=== PATIENT | female | born 1945 | race Caucasian/White ===

== ENCOUNTER 2017-05-15 13:44 | Emergency (ER) | payer MEDICARE, BC ==
[2017-05-15] MEDS ORDERED: Meclizine HCl 25 MG TAB ONE (14:14)
[2017-05-15 14:35] LABS: #Basophils 0.1 thou/uL (0.0-0.2); #Eosinphils 0.4 thou/uL (0.0-0.7); #Lymphocytes 1.1 thou/uL (1.20-3.40); #Monocytes 0.4 thou/uL (0.11-0.59); #Neutrophils 3.4 thou/uL (1.40-6.50); %Basophils 1.3 % (0.0-1.0); %Lymphocytes 19.9 % (21.0-51.0); %Monocytes 8.1 % (0.0-10.0); Hematocrit 33.6 % (36.0-47.0); Mean Platelet Volume 7.1 fL (7.4-10.4); Red Blood Cell (RBC) Count 3.68 mill/uL (4.20-5.40); White Blood Cell (WBC) Count 5.4 thou/uL (4.8-10.8)
--- NOTE | 2017-05-15 14:43 | CT ---
CT BRAIN WITHOUT CONTRAST: HISTORY: Dizziness. COMPARISON: CT brain from 2006. FINDINGS: No acute territorial infarct or hemorrhage. No midline shift or mass effect. Ventricular size and extraaxial CSF spaces are normal. Calvarium is intact. Paranasal sinuses and mastoids are clear. IMPRESSION: No acute intracranial abnormality. POS: [facility]
[2017-05-15 14:50] LABS: Anion Gap 13 mmol/L (10-20); BUN (Urea Nitrogen) 13 mg/dL (9.8-20.1); CK (CPK) 43 U/L (29-168); Calc. Creatinine Clearance 0 mL/min (70-130); Carbon Dioxide 26 mmol/L (23-31); Chloride 104 mmol/L (98-107); Estimated GFR-MDRD 75; Magnesium 1.8 mg/dL (1.6-2.6)
[2017-05-15 14:52] LABS: Troponin I Less than 0.010 ng/mL (< 0.028)
== END 2017-05-15 16:45 | disposition home or self-care (01) ==
LOC: SCSER 13:44
DX: H81.11 Benign paroxysmal vertigo, right ear (principal); K21.9 Gastro-esophageal reflux disease without esophagitis; F32.9 Major depressive disorder, single episode, unspecified; F17.210 Nicotine dependence, cigarettes, uncomplicated; Z79.82 Long term (current) use of aspirin; Z85.3 Personal history of malignant neoplasm of breast; Z79.899 Other long term (current) drug therapy
CPT/HCPCS: 36415; 70450; 80048; 82550; 82553; 83735; 84484; 85025; 93005

== ENCOUNTER 2017-07-13 08:00 | Outpatient (CLI) | payer MEDICARE, BC | END 2017-07-13 08:01 | disposition home or self-care (01) | LOC: BICMAMMO 08:00 | PROVIDERS: ATTEND Internal Medicine Hematology & Oncology | DX: Z85.3 Personal history of malignant neoplasm of breast (principal); R92.2 Inconclusive mammogram | CPT/HCPCS: G0204; G0279; 77066 ==

== ENCOUNTER 2018-01-07 08:46 | Outpatient (CLI) | payer MEDICARE, BC ==
--- NOTE | 2018-01-07 09:30 | RAD ---
RIGHT SHOULDER 3 VIEWS: HISTORY: Pain. M25.511. COMPARISON: None. FINDINGS: No acute displaced fracture or malalignment. Mild narrowing of the acromioclavicular joint. Visuali zed ribs are unremarkable. IMPRESSION: No acute abnormality. POS: [facility]
== END 2018-01-07 08:47 | disposition home or self-care (01) ==
LOC: SCSRAD 08:46
PROVIDERS: ATTEND Family Medicine
DX: M25.511 Pain in right shoulder (principal)

== ENCOUNTER 2018-02-17 10:36 | Outpatient (CLI) | payer MEDICARE, BC | END 2018-02-17 10:37 | disposition home or self-care (01) | LOC: BICRAD 10:36 | PROVIDERS: ATTEND Podiatrist | DX: M20.42 Other hammer toe(s) (acquired), left foot (principal); M19.072 Primary osteoarthritis, left ankle and foot; M20.12 Hallux valgus (acquired), left foot; M21.612 Bunion of left foot; Q66.21 Congenital metatarsus primus varus; Z98.890 Other specified postprocedural states; Z87.81 Personal history of (healed) traumatic fracture ==

== ENCOUNTER 2018-04-08 08:20 | Outpatient (CLI) | payer MEDICARE, BC ==
--- NOTE | 2018-04-08 09:54 | CT ---
LOW DOSE SCREENING LUNG CT: HISTORY: Nicotine dependence. One year followup. Previous smoker (quit one week ago, smoked for 50 years, av erage of one-half pack a day). Recurrent cough. COMPARISON: 02/17/2017 TECHNIQUE: Utilizing the institution protocol, a low dose CT is performed in the axial plane. Coronal reformatt ed images are submitted for interpretation. FINDINGS: Lung-RADS category 1: No evidence of a primary lung cancer or suspicious mass. Potentially significant incidentals (lung-RADS category S): None. Pulmonary incidentals: Patchy areas of linear opacity, likely due to scar/atelectasis, noted. Other incidentals: Moderate hiatal hernia is redemonstrated. Atherosclerosis of the aorta is identi fied. IMPRESSION: 1. Lung-RADS category 1-Negative examination. 2. Lung-RADS category S-Negative. No new or unknown potential significant incidentals. 3. Other incidentals as above. POS: [facility]
== END 2018-04-08 08:21 | disposition home or self-care (01) ==
LOC: CT 08:20
PROVIDERS: ATTEND Internal Medicine Hematology & Oncology
DX: Z12.2 Encounter for screening for malignant neoplasm of respiratory organs (principal); R92.1 Mammographic calcification found on diagnostic imaging of breast; R92.2 Inconclusive mammogram; N64.89 Other specified disorders of breast; I70.0 Atherosclerosis of aorta; K44.9 Diaphragmatic hernia without obstruction or gangrene; Z85.3 Personal history of malignant neoplasm of breast; Z80.3 Family history of malignant neoplasm of breast; F17.210 Nicotine dependence, cigarettes, uncomplicated
CPT/HCPCS: 77066; G0279; G0297

== ENCOUNTER 2018-06-20 07:29 | Outpatient (CLI) | payer MEDICARE, BC ==
--- NOTE | 2018-06-20 10:18 | MRI ---
MRI CERVICAL SPINE WITHOUT CONTRAST: Date: 06/20/18 HISTORY: M48.02, spinal stenosis cervical region. COMPARISON: MRI dated 09/17/16. FINDINGS: The cerebellar tonsils terminate at the level of the foramen magnum. There is no marrow infiltrative process. No acute fracture or malalignment. No listhesis. No adenopathy. Levels are as follows: C2-3: Mild disc desiccation. Mild uncinate process hypertrophy. Mild facet arthrosis. No significant neural foraminal narrowing. Spinal canal measures 7.0 mm. C3-4: Moderate disc desiccation. Moderate uncinate process hypertrophy. There is a central posterior disc osteophyte complex. Mild ligamentum flavum hypertrophy. Spinal canal measures 6.0 mm. Moderate facet arthropathy. Moderate to severe left and moderate right-sided neural foraminal narrowing. C4-5: Moderate disc desiccation. Moderate uncinate process hypertrophy. Moderate facet arthropathy. Spinal canal measures 8.0 mm. There is a broad based posterior disc osteophyte complex, small. There is moderate right and mild left-sided neural foraminal narrowing. C5-6: Circumferential disc space height loss. Circumferential disc osteophyte complex. Severe facet arthrosis. Ligamentum flavum hypertrophy. Spinal canal is narrowed to approximately 4.0 mm. There is impingement of the cord with mild increased T2 signal. There is also severe left and moderate to viraj re right-sided neural foraminal narrowing. C6-7: Circumferential disc bulge and posterior disc osteophyte complex. Moderate to severe posterior disc space height loss. Moderate facet arthropathy. Moderate facet arthropathy. There is narrowing o f the spinal canal to approximately 5.0 mm. Moderate to severe left and moderate right-sided neural f oraminal narrowing. C7-T1: There is 1.0 mm anterolisthesis due to severe facet arthropathy. There is ligamentum flavum h ypertrophy. The spinal canal measures 7.0 mm. Moderate left and mild right-sided neural foraminal tamara rowing. IMPRESSION: Multilevel spondylosis as described with multifocal neural foraminal and spinal canal narrowing. Ther e is impingement of the cord with mild increased T2 signal at the C5-6 and C6-7 interspace, slightly progressed from the comparison examination. POS: [facility]
--- NOTE | 2018-06-20 11:16 | RAD ---
CERVICAL SPINE COMPLETE WITH FLEXION AND EXTENSION: Date: 06/20/18 HISTORY: Spinal stenosis. COMPARISON: MRI same date. FINDINGS: Multifocal degenerative disc space height loss. There is anterolisthesis of C4 over C5, approximately 2.0 mm, which increases to 3.0 mm with flexion, and then decreases in extension. Multifocal degenerative disc space height loss, worse at C3-4, C5-6, and C6-7. IMPRESSION: Anterolisthesis with translation with flexion and extension at C4-5. POS: [facility]
== END 2018-06-20 07:30 | disposition home or self-care (01) ==
LOC: BICMRI 07:29
PROVIDERS: ATTEND Anesthesiology Pain Medicine
DX: M48.02 Spinal stenosis, cervical region (principal); M43.12 Spondylolisthesis, cervical region; M47.812 Spondylosis without myelopathy or radiculopathy, cervical region; R93.7 Abnormal findings on diagnostic imaging of other parts of musculoskeletal system; G95.89 Other specified diseases of spinal cord
CPT/HCPCS: 72052; 72141

== ENCOUNTER 2018-10-04 08:59 | Outpatient (CLI) | payer MEDICARE, BC ==
[2018-10-04 10:10] LABS: Hemoglobin 13.2 g/dL (12.0-16.0); Mean Corpuscular HGB CONC 32.4 g/dL (32.0-36.0); Mean Corpuscular Hemoglobin 31.2 pg (27.0-31.0); Mean Corpuscular Volume 96.4 fL (78.0-98.0); Mean Platelet Volume 7.6 fL (7.4-10.4); Platelet Count 261 thou/uL (130-400); RBC Distribution Width 11.5 % (11.5-14.5); Red Blood Cell (RBC) Count 4.24 mill/uL (4.20-5.40)
[2018-10-04 10:23] LABS: INR-International Normal Ratio 0.9; PTT 32.9 SEC (22.9-36.1); Prothrombin Time 12.6 SEC (12.0-14.7)
[2018-10-04 10:33] LABS: Anion Gap 11 mmol/L (10-20); BUN (Urea Nitrogen) 15 mg/dL (9.8-20.1); Calc. Creatinine Clearance 0 mL/min (70-130); Calcium 9.9 mg/dL (7.8-10.44); Carbon Dioxide 29 mmol/L (23-31); Chloride 101 mmol/L (98-107); Estimated GFR-MDRD 63; Glucose 91 mg/dL (83-110); Potassium 4.5 mmol/L (3.5-5.1); Sodium 136 mmol/L (136-145)
--- NOTE | 2018-10-04 18:20 | EKG ---
Test Reason : Blood Pressure : / mmHG Vent. Rate : 078 BPM Atrial Rate : 078 BPM P-R Int : 172 ms QRS Dur : 142 ms QT Int : 400 ms P-R-T Axes : 048 104 037 degrees QTc Int : 456 ms Normal sinus rhythm Right bundle branch block Abnormal ECG When compared with ECG of 15-MAY-2017 13:53, T wave inversion no longer evident in Inferior leads Confirmed by DR. Lila MADSEN ([id number]) on 10/04/2018 6:19:36 PM Referred By: YAKOV Confirmed By:DR. Lila MADSEN
== END 2018-10-04 09:00 | disposition home or self-care (01) ==
LOC: LABBT 08:59
PROVIDERS: ATTEND Surgery
DX: Z01.818 Encounter for other preprocedural examination (principal); M48.02 Spinal stenosis, cervical region; M54.12 Radiculopathy, cervical region
CPT/HCPCS: 80048; 85027; 85610; 85730; 93005; 93010

== ENCOUNTER 2018-10-11 10:00 | Inpatient (IN) | payer MEDICARE, BC ==
[2018-10-04 09:36] VITALS: BMI 28.1
[~2018-10-11 10:00] MED LIST: Glycopyrrolate 0.2 MG/ML 5 ML SYRINGE ONE; Ketorolac Tromethamine 30 MG/ML VIAL ONE; Lidocaine 1% PF 5 ML VIAL ONE; Ondansetron PF 4 MG/2 ML Vial ONE; PHENYLEPHRINE-NS 100 MCG/ML 10 ML SYRINGE ONE; PROPOFOL 200 MG/20 ML VIAL ONE; Rocuronium Bromide 10 MG/ML (10ML VIAL) ONE; ePHEDrine 50 MG/ML VIAL ONE
[2018-10-11] MEDS ORDERED: Sodium Chloride 0.9% 10 ML ONE (10:44)
[2018-10-11] MEDS ORDERED: Thrombin 5000 UNITS/5 ML VIAL ONE (10:44)
[2018-10-11] MEDS ORDERED: Fentanyl 100 MCG/2 ML VIAL ONE ×4 (11:30→19:00)
[2018-10-11] MEDS ORDERED: Morphine 2 MG/ML SYRINGE SLOW IVP PRN (14:32)
[2018-10-11] MEDS ORDERED: Mag-Al 1200 mg/1200 mg/30 ML UDCUP PO PRN (14:32)
[2018-10-11] MEDS ORDERED: Acetaminophen/Codeine 30-300mg Tablet PO PRN (14:32)
[2018-10-11] MEDS ORDERED: Milk Of Magnesia 30 ML UDCUP PO PRN (14:32)
[2018-10-11] MEDS ORDERED: tiZANidine HCl 4 MG TAB PO PRN (14:32)
[2018-10-11] MEDS ORDERED: Acetaminophen 325 MG TAB PO PRN (14:32)
[2018-10-11] MEDS ORDERED: Bisacodyl 10 MG SUPP PR PRN (14:32)
[2018-10-11] MEDS ORDERED: Fleet Enema 133 ML BOT PR PRN (14:32)
[2018-10-11] MEDS ORDERED: traMADol HCl 50 MG TAB PO PRN (14:32)
[2018-10-11] MEDS ORDERED: Promethazine HCl 25 MG/ML VIAL IM PRN ×2 (14:32→14:43)
[2018-10-11] MEDS ORDERED: Ondansetron HCl/PF 4 MG/2 ML Vial IVP PRN (14:43)
[2018-10-11] MEDS ORDERED: Promethazine HCl 25 MG/ML VIAL SLOW IVP PRN (14:43)
[2018-10-11] MEDS ORDERED: tiZANidine HCl 4 MG TAB ONE (15:14)
[2018-10-11] MEDS: HYDROcodone/Acetaminophen 7.5/325 mg Tablet PO PRN (21:31)
[2018-10-11] MEDS: Gabapentin 300 MG CAP PO SCH (21:31)
[2018-10-11] MEDS: Sodium Chloride 0.9% 1,000 ML IV SCH (21:32)
[2018-10-11] MEDS ORDERED: CEFAZOLIN 2 GM in Premix Bag 1 BAG IVPB SCH (22:00)
[2018-10-12] MEDS: HYDROcodone/Acetaminophen 7.5/325 mg Tablet PO PRN ×2 (02:25→07:32)
[2018-10-12] MEDS: CEFAZOLIN 2 GM in Premix Bag 1 BAG IVPB SCH ×2 (03:01→13:34)
[2018-10-12] MEDS: Sodium Chloride 0.9% 1,000 ML IV SCH (03:05)
--- NOTE | 2018-10-12 07:32 | OP ---
DATE OF PROCEDURE: 10/11/2018 OPERATING ROOM: OR 11. WOUND CLASSIFICATION: Type 1 wound. MACHINE OVERHAULER: Trace Vila PA-C. PREPROCEDURE DIAGNOSIS: Cervical myelopathy with neck and arm pain with cervical radiculopathy and cervical stenosis. POSTPROCEDURE DIAGNOSIS: Cervical myelopathy with neck and arm pain with cervical radiculopathy and cervical stenosis. PROCEDURES PERFORMED: 1. Anterior C5-C6 and C6-C7 diskectomies for decompression of spinal cord nerve root. 2. Interbody spacer placement for arthrodesis, packed with local bone autograft obtained from same incision, allograft C5-C6 and C6-C7. 3. Anterior cervical plate and screw fixation, C5, C6, and C7. 4. Use of operative microscope for microdissection. DESCRIPTION OF PROCEDURE: After informed consent was obtained from the patient, the patient was brought to the OR. Proper patient, pause, and identification were carried out. She was then placed under excellent general endotracheal anesthesia and positioned supine on the OR table. All appropriate points were padded. We identified the anterior C5-C6 and C6-C7 segments and a right anterior oblique leigh was made in the anterior neck. This region was sterilely cleansed, prepared, and draped. Proper patient, pause, and identification were carried out. The wound was then opened with a combination of sharp, monopolar, and blunt dissection, and we proceeded lateral to the tracheoesophageal bundle medial to the right carotid sheath. We identified the prevertebral layer of deep cervical fascia and the longus colli muscles. These were swept laterally, retraction placed. Localization film confirmed area of interest. We then performed distraction at C5-C6. The microscope was brought in for microdissection. Diskectomy at C5-C6 was performed, and we had excellent decompression of common dural tube in the C6 nerve roots bilaterally. Interbody spacer appropriate dimension was placed, packed with graft for arthrodesis. We then turned our attention to release of the distraction at C5-C6 and distracted C6-C7. We then performed diskectomy at C6-C7 with excellent decompression of common dural tube and the bilateral C7 nerve roots. We then turned our attention to preparation of the endplates. An interbody spacer packed with graft was placed for arthrodesis. The microscope was removed. Anterior cervical plate and screw fixation at C5, C6, and C7 occurred. We were pleased with both gross and work fluoroscopic positioning of the hardware and alignment. Copious irrigation occurred throughout as did maximizing hemostasis. The wound was then closed in anatomic layers over drain. The patient then emerged from anesthesia. Job ID: [id number]
[2018-10-12] MEDS ORDERED: Anastrozole 1 MG TAB PO SCH (09:00)
[2018-10-12] MEDS ORDERED: buPROPion 75 MG TAB PO SCH (09:00)
[2018-10-12] MEDS ORDERED: Lisinopril 10 MG TAB PO SCH (09:00)
[2018-10-12] MEDS: Gabapentin 300 MG CAP PO SCH ×3 (09:02→13:34)
[2018-10-12 11:50] VITALS: BP 148/83; TEMP 98.1
--- NOTE | 2018-10-12 14:34 | PRG ---
DATE OF SERVICE: 10/12/2018 Ms. Medrano is postoperative day #1 from C5 to C7 ACDF. She states her arms feel the same compared to before surgery. It is going to take time, which obtained excellent decompression of the common dural tube and nerve roots. We went over interim postoperative issues and we will plan for dismissal. Job ID: [id number]
== END 2018-10-12 14:31 | disposition home or self-care (01) | DRG 472 ==
LOC: SDC 10:00 → SURG B 14:31
PROVIDERS: ADMIT Surgery; ATTEND Surgery
PROC: 0RG20A0 Fusion of 2 or more Cervical Vertebral Joints with Interbody Fusion Device, Anterior Approach, Anterior Column, Open Approach (ICD-10-PCS; principal; 2018-10-11)
PROC: 0RB30ZZ Excision of Cervical Vertebral Disc, Open Approach (ICD-10-PCS; 2018-10-11)
DX: M48.02 Spinal stenosis, cervical region (principal); G99.2 Myelopathy in diseases classified elsewhere; M54.12 Radiculopathy, cervical region
CPT/HCPCS: 76000; C1713; C1776; J0131; J1885; J2001; J2405; J2704; J3010; J3490

== ENCOUNTER 2018-11-23 14:33 | Outpatient (CLI) | payer MEDICARE, BC ==
--- NOTE | 2018-11-23 15:02 | RAD ---
EXAM: Cervical spine 3 views: HISTORY: Spondylosis, follow-up surgery, M 50.30 M 54.12 COMPARISON: 06/20/2018 FINDINGS: Anterior cervical fusion changes at C5, C6, C7 C7-T1 are obscured on the lateral view and odontoid and C1 are obscured on the AP open mouth view No evidence for acute fracture or dislocation involving the visualized spine. There are disc osteophytosis and facet arthrosis changes. No evidence for malalignment. No evidence for a bone lesion. IMPRESSION: Spondylosis. No significant acute process. Postoperative changes.
== END 2018-11-23 14:34 | disposition home or self-care (01) ==
LOC: TBSIIMAG 14:33
PROVIDERS: ATTEND Surgery
DX: M50.10 Cervical disc disorder with radiculopathy, unspecified cervical region (principal); M47.22 Other spondylosis with radiculopathy, cervical region; M48.02 Spinal stenosis, cervical region; M54.2 Cervicalgia; Z98.890 Other specified postprocedural states
CPT/HCPCS: 72040

== ENCOUNTER 2019-01-26 07:49 | Emergency (ER) | payer MEDICARE, BC ==
[2019-01-26 08:26] LABS: #Eosinphils 0.3 thou/uL (0.0-0.7); #Lymphocytes 0.7 thou/uL (1.20-3.40); #Monocytes 0.5 thou/uL (0.11-0.59); #Neutrophils 4.8 thou/uL (1.40-6.50); %Basophils 0.5 % (0.0-1.0); %Eosinophils 5.1 % (0.0-10.0); %Lymphocytes 11.2 % (21.0-51.0); %Monocytes 8.1 % (0.0-10.0); %Neutrophils 75.1 % (42.0-75.0); Hemoglobin 12.7 g/dL (12.0-16.0); Mean Corpuscular HGB CONC 33.6 g/dL (32.0-36.0); Mean Corpuscular Hemoglobin 32.3 pg (27.0-31.0); Mean Corpuscular Volume 96.2 fL (78.0-98.0); Mean Platelet Volume 6.7 fL (7.4-10.4); Platelet Count 294 thou/uL (130-400); RBC Distribution Width 11.6 % (11.5-14.5); Red Blood Cell (RBC) Count 3.92 mill/uL (4.20-5.40); White Blood Cell (WBC) Count 6.4 thou/uL (4.8-10.8)
[2019-01-26 08:42] LABS: ALT (SGPT) 18 U/L (8-55); AST (SGOT) 16 U/L (5-34); Albumin 3.9 g/dL (3.4-4.8); Alkaline Phosphatase 83 U/L (40-150); Anion Gap 12 mmol/L (10-20); BUN (Urea Nitrogen) 8 mg/dL (9.8-20.1); Bilirubin, Total 0.3 mg/dL (0.2-1.2); Calc. Creatinine Clearance 0 mL/min (70-130); Calcium 9.3 mg/dL (7.8-10.44); Carbon Dioxide 24 mmol/L (23-31); Chloride 102 mmol/L (98-107); Estimated GFR-MDRD 75; Globulin 2.9 g/dL (2.4-3.5); Glucose 101 mg/dL (83-110); Lipase 164 U/L (8-78); Potassium 4.2 mmol/L (3.5-5.1); Protein, Total 6.8 g/dL (6.0-8.3); Sodium 134 mmol/L (136-145)
[2019-01-26] MEDS ORDERED: Ondansetron PF 4 MG/2 ML Vial ONE (09:35)
[2019-01-26] MEDS ORDERED: Pantoprazole 40 MG VIAL ONE (09:35)
[2019-01-26 09:50] LABS: Bilirubin Negative (Negative); Blood, Urine Negative (Negative); Clarity Clear (Clear); Glucose, Urine (Dipstick) Normal (Negative); Leukocyte 25 Leu/uL (Negative); Nitrite Negative (Negative); Protein, Urine (Dipstick) 10 mg/dL (Neg-Trace); RBC/HPF 0-3 HPF (0-3); Squamous Epithelial 0-3 HPF (0-3); Urobilinogen Normal mg/dL (Less than 2); WBC/HPF 0-3 HPF (0-3)
[2019-01-26 09:51] LABS: Bacteria/HPF None Seen HPF (None Seen)
--- NOTE | 2019-01-26 09:52 | CT ---
CT ABDOMEN WITH CONTRAST CT PELVIS WITH CONTRAST: DATE: 01/26/2019 HISTORY: 73-year-old female with upper abdominal pain COMPARISON: None available TECHNIQUE: IV injection of iodinated contrast media: administered. Oral contrast media:Not administered FINDINGS: Large amount of colonic stool mildly expanding the cecum and ascending colon, and filling but not exp anding the transverse colon. Moderate amount of colonic stool in rectum. Descending colon and rectosigmoid are collapsed. No diverticulitis. Approximately half of the stomach has herniated into the thoracic cavity. Mildly distended gallbladder, but no gallbladder mural thickening or pericholecystic edema. Atherosclerotic calcification without aneurysm of abdominal aorta. Normal liver, bilateral kidneys, adrenals, urinary bladder, pancreas, and spleen. Multiple mildly enlarged upper retroperitoneal lymph nodes around the aorta. Appendix not visualized with certainty. No overt evidence of appendicitis. No ascites or pneumoperitoneum. Lung bases are grossly clear. No pleural effusion. Laminectomy defects and bilateral pedicle screws at lower lumbar spine several levels and upper sacru m. IMPRESSION: 1) nonspecific mild upper retroperitoneal lymphadenopathy. 2) moderate-large paraesophageal hiatal hernia. 3) large volume of stool in the right hemicolon. 4) status post laminectomy and posterior lumbar fusion with hardware.
--- NOTE | 2019-01-28 23:43 | EKG ---
Test Reason : Blood Pressure : / mmHG Vent. Rate : 079 BPM Atrial Rate : 079 BPM P-R Int : 160 ms QRS Dur : 130 ms QT Int : 392 ms P-R-T Axes : 014 104 010 degrees QTc Int : 449 ms Normal sinus rhythm Right bundle branch block Abnormal ECG Confirmed by AUDREY NICKERSON ([id number]), loan expeditor ART JOYNER ([id number]) on 01/28/2019 11:42:48 PM Referred By: KRISHAN Confirmed By:AUDREY NICKERSON
== END 2019-01-26 10:54 | disposition home or self-care (01) ==
LOC: ERS 07:49
DX: K44.9 Diaphragmatic hernia without obstruction or gangrene (principal); K59.00 Constipation, unspecified; R11.0 Nausea; I10 Essential (primary) hypertension; K21.9 Gastro-esophageal reflux disease without esophagitis; F32.9 Major depressive disorder, single episode, unspecified; F17.210 Nicotine dependence, cigarettes, uncomplicated; Z79.899 Other long term (current) drug therapy
CPT/HCPCS: 74177; 80053; 81003; 81015; 83690; 84484; 85025; 87086; 93005; 96361; 96374; 96375; C9113; J2405

== ENCOUNTER 2019-04-10 08:10 | Outpatient (CLI) | payer MEDICARE, BC ==
--- NOTE | 2019-04-10 10:01 | CT ---
CT chest noncontrast low-dose screening HISTORY: Nicotine dependence. Current smoker. Prior breast cancer. COMPARISON: 04/08/2018. FINDINGS: A few scattered tiny subpleural calcified granulomata are apparent. In addition, innumerabl e tiny subpleural nodules are now present, along with widespread linear interstitial thickening, some areas extending to the pleural surface. None of the nodules are greater than 0.2 cm. Small area of pleural calcification at the dome of the left hemidiaphragm is stable. No pleural fluid or pneumothorax. Lack of contrast limits evaluation of the soft tissues. No bulky mediastinal adenopathy. Prominent ca lcification throughout the arterial structures. Postoperative changes cervical spine. Hiatal hernia again demonstrated. IMPRESSION: Lung RADS category 2. Benign findings. Suggest routine screening. Interval appearance of peripheral interstitial thickening with multiple tiny nonspecific subpleural n odules. Consider developing interstitial lung disease. Atherosclerosis. Hiatal hernia.
== END 2019-04-10 08:11 | disposition home or self-care (01) ==
LOC: CT 08:10
PROVIDERS: ATTEND Internal Medicine Hematology & Oncology
DX: F17.210 Nicotine dependence, cigarettes, uncomplicated (principal); J98.4 Other disorders of lung; R91.8 Other nonspecific abnormal finding of lung field; I70.90 Unspecified atherosclerosis; K44.9 Diaphragmatic hernia without obstruction or gangrene
CPT/HCPCS: G0297

== ENCOUNTER 2019-04-10 13:40 | Outpatient (CLI) | payer MEDICARE, BC ==
--- NOTE | 2019-04-10 14:31 | MMO ---
Bilateral MAMMO Bilat Diag DDI+DIANELYS. CLINICAL HISTORY: Patient is 73 years old and is seen for diagnostic exam. The patient has the following family history of breast cancer: sister, malignant (generic). The patient has a history of malignant (generic) in the right breast in 2015. The patient has a history of right Lumpectomy in 2015 - malignant and right needle biopsy in 2015 - malignant. VIEWS: The views performed were: bilateral craniocaudal with tomosynthesis; bilateral mediolateral oblique with tomosynthesis; and bilateral mediolateral with tomosynthesis. FILMS COMPARED: The present examination has been compared to prior imaging studies performed at [facility] on 07/13/2017 and 04/08/2018, and at [facility] on 05/01/2015 and 07/10/2016. This study has been interpreted with the assistance of computer-aided detection. MAMMOGRAM FINDINGS: The breasts are heterogeneously dense, which could obscure a lesion on mammography. Finding 1: There are stable benign appearing calcifications seen in both breasts. There are no suspicious masses, calcifications or areas of architectural distortion. Finding 2: There is a stable post-surgical scar seen in the right breast. There are no suspicious masses, suspicious calcifications, or new areas of architectural distortion. IMPRESSION: THERE IS NO MAMMOGRAPHIC EVIDENCE OF MALIGNANCY. A ROUTINE FOLLOW-UP MAMMOGRAM IN 1 YEAR IS RECOMMENDED. THE RESULTS OF THIS EXAM WERE SENT TO THE PATIENT. ACR BI-RADS Category 2 - Benign finding MAMMOGRAPHY NOTE: 1. A negative mammogram report should not delay a biopsy if a dominant of clinically suspicious mass is present. 2. Approximately 10% to 15% of breast cancers are not detected by mammography. 3. Adenosis and dense breasts may obscure an underlying neoplasm. Reported by: URBANO GILES MD Electonically Signed: [id number]
--- NOTE | 2019-04-10 17:29 | BD ---
Exam: DEXA Bone Density History: Post-menopausal screening for osteoporosis. Right Hip: BMD (g/cm2) Neck: 0.683 T-Score: -1.5 Z-Score: 0.4 Total: 0.904 T-Score: 0.3 Z-Score: 1.3 Left Hip: Neck: 0.716 T-Score: -1.2 Z-Score: -0.7 Total: 0.901 T-Score: -0.3 Z-Score: 1.3 There has been interval improvement of 5.1 BMD right hip and improvement of 2.8 BMD in the left hip. The 10-year fracture risk for a major osteoporotic fracture is 11% and hip fracture is 2.7% Impression: Osteopenia. POS: [facility]
== END 2019-04-10 13:41 | disposition home or self-care (01) ==
LOC: BICMAMMO 13:40
PROVIDERS: ATTEND Internal Medicine Hematology & Oncology
DX: Z08 Encounter for follow-up examination after completed treatment for malignant neoplasm (principal); Z13.820 Encounter for screening for osteoporosis; M85.89 Other specified disorders of bone density and structure, multiple sites; Z85.3 Personal history of malignant neoplasm of breast; Z80.3 Family history of malignant neoplasm of breast; Z98.890 Other specified postprocedural states
CPT/HCPCS: 77066; 77080; G0279

== ENCOUNTER 2019-05-25 12:37 | Outpatient (CLI) | payer MEDICARE, BC ==
--- NOTE | 2019-05-25 13:32 | CT ---
EXAM: CT Chest High Resolution, noncontrast PROVIDED CLINICAL HISTORY: Pulmonary disease. Nicotine dependence. Prior breast cancer. COMPARISON: CT pulmonary lung scan on 04/10/2019. FINDINGS: As noted on the prior exam, there are a few scattered tiny subpleural nodular densities with subpleur al interstitial densities predominantly in the upper lung zones which is overall nonspecific. The subpleural nodular densities are less than 3 mm in size. Few scattered calcified granulomata are seen . No groundglass densities or bronchiectasis is present. There is stable mild pleural thickening at the left lung base which is partially calcified. Dense vascular calcifications are again seen in the coronary arteries as well as involving the thorac ic aorta. Hiatal hernia is again demonstrated. Lack of intravenous contrast limits sensitivity for evaluation of vascular structures and mediastinum . No enlarged lymph nodes are seen on this nonenhanced CT scan examination. There has been no significant interval change compared to the study on 04/10/2019. IMPRESSION: 1. Minimal subpleural interstitial densities within the lungs bilaterally suggesting mild chronic int erstitial lung disease. No groundglass densities are seen. 2. Tiny subpleural nodular densities which measure less than 3 mm. 3. Dense vascular calcifications. 4. Hiatal hernia.
--- NOTE | 2019-05-26 13:18 | PFT ---
PATIENT HISTORY: HEIGHT: 67 IN WEIGHT: 180 LBS SMOKER: YES HOW LON YRS PACKS PER DAY 1/2 PRODUCTIVE COUGH: NO LUNG DISEASE: PHYSICIAN INTERPRETATION FINAL REPORT: Patient had good effort and good cooperation. FVC 2.83 (85%), FEV1 1.95 (77%), FEV1/FVC 0.69. RV 2.08 (94%), TLC 4.62 (83%) DIFFUSION 15.10 (63%) The FEV1 is just below lower limits of normal. The FVC is normal. The ratio is normal for 73 year old. There is no significant improvement following the administration of a bronchodilator. Lung Volumes fall within the normal limits. Diffusion Capacity is mildly impaired, but corrects into the lower limits of normal, when accounting for alveolar ventilation. IMPRESSION: Overall, these pulmonary function studies are most consistent with minimal restrictive lung disease, with mild reduction in gas exchange. These changes may be age appropriate. However, clinical and radiographic correlation for interstitial ling processes should be considered. I have no priors for comparison. Manager Plan: THI Certified [employer] Engineer: THI SIDDIQUI
== END 2019-05-25 12:38 | disposition home or self-care (01) ==
LOC: CT 12:37
PROVIDERS: ATTEND Internal Medicine
DX: J84.9 Interstitial pulmonary disease, unspecified (principal); G47.33 Obstructive sleep apnea (adult) (pediatric); K44.9 Diaphragmatic hernia without obstruction or gangrene; J98.4 Other disorders of lung
CPT/HCPCS: 71250; 94060; 94727; 94729

== ENCOUNTER 2019-06-12 18:00 | Outpatient (CLI) | payer MEDICARE, BC | END 2019-06-12 18:01 | disposition home or self-care (01) | LOC: SLEEPLAB 18:00 | PROVIDERS: ATTEND Internal Medicine | DX: G47.33 Obstructive sleep apnea (adult) (pediatric) (principal); R06.81 Apnea, not elsewhere classified; R53.83 Other fatigue; R51 Headache; K21.9 Gastro-esophageal reflux disease without esophagitis; R06.83 Snoring; R35.1 Nocturia; G47.00 Insomnia, unspecified | CPT/HCPCS: 95806 ==

== ENCOUNTER 2019-07-29 11:52 | Emergency (ER) | payer MEDICARE, BC ==
[2019-07-29 12:32] LABS: #Basophils 0.1 thou/uL (0.0-0.2); #Eosinphils 0.4 thou/uL (0.0-0.7); #Lymphocytes 1.2 thou/uL (1.20-3.40); #Monocytes 0.5 thou/uL (0.11-0.59); #Neutrophils 4.3 thou/uL (1.40-6.50); %Basophils 1.2 % (0.0-1.0); %Eosinophils 6.7 % (0.0-10.0); %Lymphocytes 17.8 % (21.0-51.0); %Monocytes 7.8 % (0.0-10.0); %Neutrophils 66.4 % (42.0-75.0); Mean Corpuscular HGB CONC 33.2 g/dL (32.0-36.0); Mean Corpuscular Hemoglobin 31.5 pg (27.0-31.0); Mean Platelet Volume 7.4 fL (7.4-10.4); Platelet Count 268 thou/uL (130-400); RBC Distribution Width 11.8 % (11.5-14.5); Red Blood Cell (RBC) Count 4.12 mill/uL (4.20-5.40); White Blood Cell (WBC) Count 6.4 thou/uL (4.8-10.8)
[2019-07-29 13:02] LABS: ALT (SGPT) 17 U/L (8-55); AST (SGOT) 18 U/L (5-34); Alkaline Phosphatase 81 U/L (40-110); Anion Gap 12 mmol/L (10-20); BUN (Urea Nitrogen) 10 mg/dL (9.8-20.1); Bilirubin, Total 0.3 mg/dL (0.2-1.2); Calc. Creatinine Clearance 0 mL/min (70-130); Calcium 9.5 mg/dL (7.8-10.44); Carbon Dioxide 29 mmol/L (23-31); Chloride 99 mmol/L (98-107); Estimated GFR-MDRD 72; Globulin 2.5 g/dL (2.4-3.5); Glucose 90 mg/dL (83-110); Potassium 4.4 mmol/L (3.5-5.1); Protein, Total 6.5 g/dL (6.0-8.3); Sodium 136 mmol/L (136-145)
--- NOTE | 2019-07-29 13:25 | CT ---
CT BRAIN WITHOUT CONTRAST: HISTORY: Dizziness and headache COMPARISON: 05/15/2017 FINDINGS: No evidence of acute infarct, hemorrhage, midline shift or abnormal extra-axial fluid collections is seen. The ventricular size is appropriate and the basilar cisterns are patent. The bony calvarium is intact. The visualized paranasal sinuses and mastoid air cells are well aerated. IMPRESSION: No CT evidence of acute intracranial process.
--- NOTE | 2019-07-29 13:26 | RAD ---
XR Chest 1 View Portable HISTORY: Nausea COMPARISON: 01/21/2007 FINDINGS: The heart size is normal. The lungs are well expanded without focal areas of consolidation, pneumothorax or pleural effusions. Hiatal hernia is present. IMPRESSION: No radiographic evidence of acute cardiopulmonary process.
[2019-07-29] MEDS ORDERED: Ondansetron PF 4 MG/2 ML Vial ONE (13:58)
== END 2019-07-29 15:30 | disposition home or self-care (01) ==
LOC: ERS 11:52
DX: R11.2 Nausea with vomiting, unspecified (principal); K21.9 Gastro-esophageal reflux disease without esophagitis; F32.9 Major depressive disorder, single episode, unspecified; F17.210 Nicotine dependence, cigarettes, uncomplicated; Z79.899 Other long term (current) drug therapy; I10 Essential (primary) hypertension
CPT/HCPCS: 36415; 70450; 71045; 80053; 83690; 84484; 85025; 96361; 96374; J2405

== ENCOUNTER 2019-12-27 10:40 | Outpatient (CLI) | payer MEDICARE, BC ==
--- NOTE | 2019-12-27 13:39 | CT ---
CT OF THE LUMBAR SPINE WITHOUT IV CONTRAST: INDICATION: A 74-year-old female with low back pain that radiates into the right leg with numbness and tingling w ith 2 prior back surgeries. COMPARISON: CT of lumbar spine from [facility] dated 06/12/2016. FINDINGS: The spinal instrumentation spanning L4 through S1 appears stable to the comparison study. There are 2 separate pedicle screws within the right L4 and right S1 vertebral level and there are 3 separate p edicle screws within the left L4, L5 and S1 vertebral level. The lucency surrounding the pedicle scr ews at S1 are stable-appearing. The interconnecting rods appear intact. Laminectomy change at L4 an d L5 is stable-appearing. The posterior epidural fluid collection at the laminectomy sit at L4-5 kevin sures 3.8 x 3.9 cm where previously it measured approximately 5.3 x 4.5 cm. There is mild degenerati ve change of both SI joints. At L5-S1, no appreciable osseous central canal narrowing is evident. There are some residual osteoph yte complexes at L5-S1 likely inducing at least mild bilateral osseous neural foraminal narrowing whi ch is stable. At L4-5, there is moderate osseous bilateral neural foraminal narrowing due to loss of disk space hei ght in addition to the grade I anterolisthesis that is stable-appearing. At L3-4, there is a broad-based disk-osteophyte complex and facet hypertrophy likely inducing at leas t moderate bilateral osseous neural foraminal narrowing which appears similar to the prior exam. At L2-3, there is a broad-based bulge with facet hypertrophy inducing at least mild to moderate bilat eral osseous neural foraminal narrowing. This appears stable to the prior exam. At L1-L2, there is a broad-based bulge with facet hypertrophy inducing mild bilateral neural foramina l narrowing which is stable to the prior exam. There is a broad-based bulge with mild bilateral neur al foraminal narrowing which is stable-appearing. There is a 3 mm and a 2 mm nonobstructing calculus within the mid left kidney. There is a layered de nsity within the gallbladder neck suspicious for small stones. IMPRESSION: 1. Stable postoperative lumbar spine with perpendicular screw lucency at S1 suspicious for loosening . 2. Multilevel osseous neural foraminal narrowing as detailed above is similar to the most recent com parison in 2016. 3. Left nephrolithiasis. 4. Cholelithiasis. POS: [facility]
== END 2019-12-27 10:41 | disposition home or self-care (01) ==
LOC: BICCT 10:40
PROVIDERS: ATTEND Family Medicine
DX: M54.16 Radiculopathy, lumbar region (principal); M48.061 Spinal stenosis, lumbar region without neurogenic claudication; Z98.890 Other specified postprocedural states; N20.0 Calculus of kidney; K80.20 Calculus of gallbladder without cholecystitis without obstruction
CPT/HCPCS: 72131

== ENCOUNTER 2020-04-12 09:28 | Outpatient (CLI) | payer MEDICARE, BC ==
--- NOTE | 2020-04-12 10:06 | MMO ---
Bilateral MAMMO Bilat Diag DDI+DIANELYS. CLINICAL HISTORY: Patient is 74 years old and is seen for diagnostic exam. The patient has the following family history of breast cancer: sister, malignant (generic). The patient has a history of malignant (generic) in the right breast in 2015. The patient has a history of right Lumpectomy in 2015 - malignant and right needle biopsy in 2015 - malignant. VIEWS: The views performed were: bilateral craniocaudal with tomosynthesis; bilateral mediolateral oblique with tomosynthesis; and bilateral mediolateral with tomosynthesis. FILMS COMPARED: The present examination has been compared to prior imaging studies performed at [facility] on 07/13/2017, 04/08/2018 and 04/10/2019, and at [facility] on 07/10/2016. This study has been interpreted with the assistance of computer-aided detection. MAMMOGRAM FINDINGS: There are benign appearing calcifications seen in both breasts. Post op changes right breast stable. There are no suspicious masses, suspicious calcifications, or new areas of architectural distortion. IMPRESSION: THERE IS NO MAMMOGRAPHIC EVIDENCE OF MALIGNANCY. A ROUTINE FOLLOW-UP MAMMOGRAM IN 1 YEAR IS RECOMMENDED. THE RESULTS OF THIS EXAM WERE SENT TO THE PATIENT. ACR BI-RADS Category 2 - Benign finding MAMMOGRAPHY NOTE: 1. A negative mammogram report should not delay a biopsy if a dominant of clinically suspicious mass is present. 2. Approximately 10% to 15% of breast cancers are not detected by mammography. 3. Adenosis and dense breasts may obscure an underlying neoplasm. Reported by: JASON REID MD Electonically Signed: [id number]
--- NOTE | 2020-04-12 10:30 | BD ---
EXAM: Bone densitometry using DEXA HISTORY: 74 yo female. Screening for postmenopausal osteoporosis FINDINGS: Right femoral neck--bone mineral density0.724; T score -1.1 ; Z score 0.8 Total proximal right femur--bone mineral density 0.835; T score -0.9 ; Z score 0.8 Left femoral neck--bone mineral density0.745; T score -0.9 ; Z score 1.0 Total proximal left femur--bone mineral density 0.891; T score -0.4 ; Z score 1.2 There has been an interval reduction of 7.6% in the BMD of the right hip and a reduction of 1.2% in the BMD of the left hip since the previous study of 04/10/2019. The 10 year fracture risk for a major osteoporotic fracture is 9.6% and for a hip fracture is 2.1%. IMPRESSION: Osteopenia
== END 2020-04-12 09:29 | disposition home or self-care (01) ==
LOC: BICMAMMO 09:28
PROVIDERS: ATTEND Internal Medicine Hematology & Oncology
DX: Z13.820 Encounter for screening for osteoporosis (principal); C50.411 Malignant neoplasm of upper-outer quadrant of right female breast; Z78.0 Asymptomatic menopausal state; M85.851 Other specified disorders of bone density and structure, right thigh
CPT/HCPCS: 77066; 77080; G0279

== ENCOUNTER 2020-05-15 09:47 | Outpatient (CLI) | payer MEDICARE, BC ==
--- NOTE | 2020-05-15 10:29 | CT ---
CT CHEST WITHOUT CONTRAST: DATE: 05/15/2020 PROVIDED CLINICAL HISTORY: Interstitial lung disease. FINDINGS: Comparison made with the examination dated 05/25/2019. The heart, pericardium, and great vessels are suboptimally evaluated in the absence of IV contrast ma terial. Vascular calcification including coronary calcium is demonstrated. There is a stable mildly e nlarged paratracheal lymph node measuring about 1.4 cm in short axis. No additional thoracic lymph no de enlargement is evident with limitations due to lack of IV contrast material. The airway appears pa tent and of normal caliber. No pleural fluid or pneumothorax apparent. Scattered areas of subpleural reticulation and interstitial thickening are redemonstrated, similar in distribution and degree. There is no honeycombing. No ground-glass opacities, concerning nodule, or consolidation. Large hiatal hernia is redemonstrated. Visualized portions of the upper abdomen demonstrate an unrema rkable CT appearance other than a small nonobstructing left renal calculus. The osseous structures demonstrate no concerning lytic or blastic lesions. IMPRESSION: Stable exam. POS: [facility]
== END 2020-05-15 09:48 | disposition home or self-care (01) ==
LOC: BICCT 09:47
PROVIDERS: ATTEND Internal Medicine Critical Care Medicine
DX: J84.10 Pulmonary fibrosis, unspecified (principal)
CPT/HCPCS: 71250

== ENCOUNTER 2020-07-09 09:19 | Outpatient (CLI) | payer MEDICARE, BC ==
--- NOTE | 2020-07-09 10:18 | RAD ---
LUMBAR SPINE 2 VIEWS: Date: 07/09/2020 HISTORY: Back pain. COMPARISON: 06/28/2020. FINDINGS: Postop changes again noted. The pedicle screws at L3, L4, L5, and S1 unchanged. Disc implants at L3-4 , L4-5, and L5-S1 are stable in position and appearance. There are degenerative changes of the lumbar spine. Loss of disc space at the T12-L1, L1-L2, and L2-3 levels. Degenerative osteophytes. Facet hyp ertrophy. IMPRESSION: Degenerative and postoperative changes of lumbar spine appear stable. POS: [facility]
== END 2020-07-09 09:20 | disposition home or self-care (01) ==
LOC: BICRAD 09:19
PROVIDERS: ATTEND Orthopaedic Surgery
DX: M54.5 Low back pain (principal); M47.816 Spondylosis without myelopathy or radiculopathy, lumbar region
CPT/HCPCS: 72100

== ENCOUNTER 2020-11-28 14:21 | Outpatient (CLI) | payer MEDICARE, BC | END 2020-11-28 14:22 | disposition home or self-care (01) | LOC: BICCT 14:21 | PROVIDERS: ATTEND Family Medicine | DX: Z12.2 Encounter for screening for malignant neoplasm of respiratory organs (principal); F17.210 Nicotine dependence, cigarettes, uncomplicated; R91.8 Other nonspecific abnormal finding of lung field; K44.9 Diaphragmatic hernia without obstruction or gangrene; Z71.6 Tobacco abuse counseling | CPT/HCPCS: 71271 ==

== ENCOUNTER 2021-04-14 11:37 | Outpatient (CLI) | payer MEDICARE, BC | END 2021-04-14 11:38 | disposition home or self-care (01) | LOC: BICMAMMO 11:37 | PROVIDERS: ATTEND Family Medicine | DX: Z12.31 Encounter for screening mammogram for malignant neoplasm of breast (principal); Z80.3 Family history of malignant neoplasm of breast; Z85.3 Personal history of malignant neoplasm of breast; Z98.890 Other specified postprocedural states | CPT/HCPCS: 77063; 77067 ==

== ENCOUNTER 2021-05-12 09:44 | Outpatient (CLI) | payer MEDICARE, BC | END 2021-05-12 09:45 | disposition home or self-care (01) | LOC: BICCT 09:44 | PROVIDERS: ATTEND Internal Medicine Critical Care Medicine | DX: J84.9 Interstitial pulmonary disease, unspecified (principal); R91.8 Other nonspecific abnormal finding of lung field; K44.9 Diaphragmatic hernia without obstruction or gangrene | CPT/HCPCS: 71250 ==

== ENCOUNTER 2021-06-04 09:16 | Outpatient (CLI) | payer MEDICARE, BC | END 2021-06-04 09:17 | disposition home or self-care (01) | LOC: BICRAD 09:16 | PROVIDERS: ATTEND Orthopaedic Surgery | DX: M54.50 Low back pain, unspecified (principal); M47.816 Spondylosis without myelopathy or radiculopathy, lumbar region; Z98.890 Other specified postprocedural states | CPT/HCPCS: 72100 ==

== ENCOUNTER 2021-06-10 13:59 | Outpatient (CLI) | payer MEDICARE, BC | END 2021-06-10 14:00 | disposition home or self-care (01) | LOC: BICCT 13:59 | PROVIDERS: ATTEND Orthopaedic Surgery | DX: M54.2 Cervicalgia (principal); M48.02 Spinal stenosis, cervical region | CPT/HCPCS: 72125 ==

== ENCOUNTER 2022-04-17 08:46 | Outpatient (CLI) | payer MEDICARE, BC | END 2022-04-17 08:47 | disposition home or self-care (01) | LOC: BICMAMMO 08:46 | PROVIDERS: ATTEND Family Medicine | DX: Z12.31 Encounter for screening mammogram for malignant neoplasm of breast (principal); Z80.3 Family history of malignant neoplasm of breast; Z85.3 Personal history of malignant neoplasm of breast; Z98.890 Other specified postprocedural states | CPT/HCPCS: 77063; 77067 ==

== ENCOUNTER 2022-05-12 08:46 | Outpatient (CLI) | payer MEDICARE, BC | END 2022-05-12 08:47 | disposition home or self-care (01) | LOC: BICCT 08:46 | PROVIDERS: ATTEND Internal Medicine Critical Care Medicine | DX: J84.9 Interstitial pulmonary disease, unspecified (principal); K44.9 Diaphragmatic hernia without obstruction or gangrene; J84.10 Pulmonary fibrosis, unspecified; R91.8 Other nonspecific abnormal finding of lung field | CPT/HCPCS: 71250 ==

== ENCOUNTER 2022-09-28 09:24 | Emergency (ER) | payer MEDICARE, BC ==
[2022-09-28] MEDS ORDERED: Ketorolac Tromethamine 30 MG/ML VIAL ONE (10:14)
== END 2022-09-28 10:38 | disposition home or self-care (01) ==
LOC: ERS 09:24
DX: M54.41 Lumbago with sciatica, right side (principal); I10 Essential (primary) hypertension; F17.210 Nicotine dependence, cigarettes, uncomplicated; Z79.899 Other long term (current) drug therapy
CPT/HCPCS: 96372; J1885

== ENCOUNTER 2023-05-24 08:17 | Outpatient (CLI) | payer MEDICARE, BC | END 2023-05-24 08:18 | disposition home or self-care (01) | LOC: BICCT 08:17 | PROVIDERS: ATTEND Internal Medicine Critical Care Medicine | DX: J84.9 Interstitial pulmonary disease, unspecified (principal) | CPT/HCPCS: 71250 ==

== ENCOUNTER 2023-05-25 11:34 | Outpatient (CLI) | payer MEDICARE, BC | END 2023-05-25 11:35 | disposition home or self-care (01) | LOC: BICMAMMO 11:34 | PROVIDERS: ATTEND Family Medicine | DX: Z12.31 Encounter for screening mammogram for malignant neoplasm of breast (principal); Z80.3 Family history of malignant neoplasm of breast; Z85.3 Personal history of malignant neoplasm of breast; Z98.890 Other specified postprocedural states | CPT/HCPCS: 77063; 77067 ==

== ENCOUNTER 2023-07-06 15:15 | Outpatient (CLI) | payer MEDICARE, BC | END 2023-07-06 15:16 | disposition home or self-care (01) | LOC: SCSRAD 15:15 | PROVIDERS: ATTEND Family Medicine | DX: S69.92XA Unspecified injury of left wrist, hand and finger(s), initial encounter (principal); M18.12 Unilateral primary osteoarthritis of first carpometacarpal joint, left hand ==

== ENCOUNTER 2024-05-24 07:33 | Outpatient (CLI) | payer MEDICARE | END 2024-05-24 07:34 | disposition home or self-care (01) | LOC: BICCT 07:33 | PROVIDERS: ATTEND Internal Medicine Critical Care Medicine | DX: J84.9 Interstitial pulmonary disease, unspecified (principal); I51.7 Cardiomegaly; J98.4 Other disorders of lung; J94.8 Other specified pleural conditions; R91.8 Other nonspecific abnormal finding of lung field | CPT/HCPCS: 71250 ==

== ENCOUNTER 2024-05-26 09:37 | Outpatient (CLI) | payer MEDICARE | END 2024-05-26 09:38 | disposition home or self-care (01) | LOC: BICMAMMO 09:37 | PROVIDERS: ATTEND Family Medicine | DX: Z12.31 Encounter for screening mammogram for malignant neoplasm of breast (principal); Z78.0 Asymptomatic menopausal state; Z80.3 Family history of malignant neoplasm of breast; Z85.3 Personal history of malignant neoplasm of breast; M85.851 Other specified disorders of bone density and structure, right thigh; M85.852 Other specified disorders of bone density and structure, left thigh; Z98.890 Other specified postprocedural states | CPT/HCPCS: 77063; 77067; 77080 ==

== ENCOUNTER 2025-05-10 08:58 | Outpatient (CLI) | payer MEDICARE | END 2025-05-10 08:59 | disposition home or self-care (01) | LOC: BICCT 08:58 | PROVIDERS: ATTEND Internal Medicine Critical Care Medicine | DX: J84.9 Interstitial pulmonary disease, unspecified (principal); R91.8 Other nonspecific abnormal finding of lung field; J98.11 Atelectasis; I25.10 Atherosclerotic heart disease of native coronary artery without angina pectoris; K44.9 Diaphragmatic hernia without obstruction or gangrene | CPT/HCPCS: 71250 ==